=== PATIENT | male | born 1945 | race Caucasian/White ===

== ENCOUNTER 2020-04-22 17:07 | Inpatient (IN) ==
[2020-04-22] MEDS ORDERED: *HR* Enoxaparin 100 MG/ML SYRINGE SQ STA (17:15)
[2020-04-22] MEDS ORDERED: Furosemide 40 MG/4 ML VIAL IVP ONE (17:49)
[2020-04-22 18:01] LABS: INR 1.5; Prothrombin Time 16.8 Seconds (9.4-12.1)
[2020-04-22 18:04] LABS: Activated Partial Thrombo Time 33.4 Seconds (26.0-36.0)
[2020-04-22 18:39] LABS: Adenovirus Not Detected (Not Detect); Bordetella Pertussis Not Detected (Not Detect); Chlamydophila pneumoniae Not Detected (Not Detect); Coronavirus 229E Not Detected (Not Detect); Coronavirus HKU1 Not Detected (Not Detect); Coronavirus NL63 Not Detected (Not Detect); Coronavirus OC43 Not Detected (Not Detect); Human Metapneumovirus Not Detected (Not Detect); Human Rhinovirus/Enterovirus Not Detected (Not Detect); Influenza A Subtype 2009 H1 Not Detected (Not Detect); Influenza B Not Detected (Not Detect); Mycoplasma pneumoniae Not Detected (Not Detect); Parainfluenza Virus 1 Not Detected (Not Detect); Parainfluenza Virus 2 Not Detected (Not Detect); Parainfluenza Virus 3 Not Detected (Not Detect); Parainfluenza Virus 4 Not Detected (Not Detect); Respiratory Syncytial Virus Not Detected (Not Detect)
[2020-04-22] MEDS ORDERED: Azithromycin 500 MG in 0.9 % Sodium Chloride 250 ML IVPB ONE (18:57)
[2020-04-22] MEDS ORDERED: cefTRIAXone 1,000 MG in Water for inj. (sterile) 10 ML IVP ONE (18:58)
[2020-04-22] MEDS ORDERED: Naloxone 0.4 MG/ML INJ IVP PRN (20:03)
[2020-04-22] MEDS ORDERED: *HR* Dextrose 50 % in Water (Vial) 50 ML VIAL IVP PRN (23:34)
[2020-04-22] MEDS ORDERED: D5% in Water 1,000 ML IVC PRN (23:34)
[2020-04-22] MEDS ORDERED: Dextrose Gel 15 GM/37.5 ML TUBE PO PRN ×2 (23:34)
[2020-04-23] MEDS ORDERED: Perflutren Lipid Microsphere 1.3 ML in 0.9 % Sodium Chloride 8.7 ML IVP PRN (03:04)
[2020-04-23 05:41] LABS: Hematocrit 40.6 % (37.5-50.1); Mean Platelet Volume 10.4 fL (9.4-12.4)
[2020-04-23 05:43] LABS: Hemoglobin 13.2 g/dL (12.9-16.9); Immature Platelets 3.6 % (1.1-6.1); Mean Corpuscular HGB Conc 32.5 g/dL (31.6-35.5); Mean Corpuscular Hemoglobin 29.8 pg (28.0-33.3); Mean Corpuscular Volume 91.6 fL (83.0-100.0); Red Blood Count 4.43 M/mcL (4.19-5.50); Red Cell Distribution Width 14.6 % (11.5-14.5); White Blood Count 6.2 K/mcL (4.3-11.1)
[2020-04-23 05:47] LABS: BUN/Creatinine Ratio 33 (6-26); Blood Urea Nitrogen 25 mg/dL (8-23); Calcium 8.5 mg/dL (8.6-10.3); Carbon Dioxide 23 mEq/L (23-29); Chloride 105 mEq/L (98-107); Glucose 74 mg/dL (70-105); Magnesium 1.9 mg/dL (1.6-2.6); Osmolality,Calculated 293 (280-300); Phosphorous 3.7 mg/dL (2.7-4.5); Potassium 3.2 mEq/L (3.5-5.1); Sodium 140 mEq/L (136-145); eGFR For African Americans > 60 (> 60); eGFR For Non-African Americans > 60 (> 60)
[2020-04-23] MEDS ORDERED: *HR* Enoxaparin 120 MG/0.8 ML SYRINGE SQ SCH (06:00)
[2020-04-23] MEDS: Insulin LISPRO 300 UNITS/3 ML VIAL SQ SCH ×4 (08:17→20:12)
[2020-04-23] MEDS ORDERED: Furosemide 40 MG/4 ML VIAL IVP ONE (10:59)
[2020-04-23] MEDS ORDERED: amLODIPine 5 MG TABLET PO SCH (11:00)
[2020-04-23] MEDS: Cyanocobalamin (B-12) 1,000 MCG TABLET PO SCH ×2 (11:34→20:11)
[2020-04-23] MEDS: GlipiZIDE 5 MG TABLET PO SCH (15:19)
[2020-04-23] MEDS: Triamcinolone Acet 0.1% CRM 15 GM TUBE TP SCH ×2 (15:27→20:12)
[2020-04-23] MEDS: Ketoconazole 2% CRM 15 GM TUBE TP SCH ×2 (15:27→20:12)
[2020-04-23] MEDS: Apixaban 5 MG TABLET PO SCH (20:11)
[2020-04-24 03:25] LABS: Basophils % 0.4 %; Eosinophils # 0.1 K/mcL (0.0-0.6); Eosinophils % 0.7 %; Hematocrit 43.6 % (37.5-50.1); Immature Granulocytes % 0.3 % (0-4); Lymphocytes # 1.6 K/mcL (0.6-4.6); Lymphocytes % 24.3 %; Mean Corpuscular HGB Conc 32.1 g/dL (31.6-35.5); Mean Corpuscular Hemoglobin 30.4 pg (28.0-33.3); Mean Corpuscular Volume 94.8 fL (83.0-100.0); Mean Platelet Volume 10.4 fL (9.4-12.4); Monocytes # 0.6 K/mcL (0.0-1.3); Monocytes % 9.3 %; Neutrophils # 4.4 K/mcL (1.6-8.9); Platelet Count 153 K/mcL (140-400); Red Cell Distribution Width 14.6 % (11.5-14.5); White Blood Count 6.7 K/mcL (4.3-11.1)
[2020-04-24 03:45] LABS: BUN/Creatinine Ratio 36 (6-26); Blood Urea Nitrogen 31 mg/dL (8-23); Calcium 9.1 mg/dL (8.6-10.3); Carbon Dioxide 25 mEq/L (23-29); Chloride 104 mEq/L (98-107); Glucose 124 mg/dL (70-105); Osmolality,Calculated 296 (280-300); Sodium 139 mEq/L (136-145); eGFR For African Americans > 60 (> 60); eGFR For Non-African Americans > 60 (> 60)
[2020-04-24] MEDS: Cyanocobalamin (B-12) 1,000 MCG TABLET PO SCH ×2 (07:54→21:17)
[2020-04-24] MEDS: Apixaban 5 MG TABLET PO SCH (07:54)
[2020-04-24] MEDS: GlipiZIDE 5 MG TABLET PO SCH (07:55)
[2020-04-24] MEDS: Ketoconazole 2% CRM 15 GM TUBE TP SCH ×2 (07:57→21:19)
[2020-04-24] MEDS: Insulin LISPRO 300 UNITS/3 ML VIAL SQ SCH ×4 (07:57→21:12)
[2020-04-24] MEDS: Triamcinolone Acet 0.1% CRM 15 GM TUBE TP SCH ×2 (07:57→21:18)
[2020-04-24] MEDS ORDERED: Furosemide 20 MG/2 ML VIAL IVP ONE (13:13)
[2020-04-24] MEDS: *HR* Enoxaparin 120 MG/0.8 ML SYRINGE SQ SCH (21:17)
[2020-04-25] MEDS: *HR* Enoxaparin 120 MG/0.8 ML SYRINGE SQ SCH ×2 (05:29→17:58)
[2020-04-25] MEDS: Insulin LISPRO 300 UNITS/3 ML VIAL SQ SCH ×4 (07:40→20:54)
[2020-04-25] MEDS: Cyanocobalamin (B-12) 1,000 MCG TABLET PO SCH ×2 (08:59→20:49)
[2020-04-25] MEDS: GlipiZIDE 5 MG TABLET PO SCH (08:59)
[2020-04-25] MEDS: Triamcinolone Acet 0.1% CRM 15 GM TUBE TP SCH ×2 (09:04→20:46)
[2020-04-25] MEDS: Ketoconazole 2% CRM 15 GM TUBE TP SCH ×2 (09:04→20:46)
[2020-04-25] MEDS: Furosemide 40 MG/4 ML VIAL IVP SCH (20:49)
[2020-04-26] MEDS: *HR* Enoxaparin 120 MG/0.8 ML SYRINGE SQ SCH ×2 (05:10→17:31)
[2020-04-26 05:33] LABS: INR 1.6; Prothrombin Time 18.4 Seconds (9.4-12.1)
[2020-04-26 05:36] LABS: Basophils # 0.1 K/mcL (0.0-0.2); Basophils % 0.9 %; Eosinophils # 0.1 K/mcL (0.0-0.6); Eosinophils % 1.1 %; Hematocrit 45.2 % (37.5-50.1); Hemoglobin 14.6 g/dL (12.9-16.9); Immature Granulocytes % 0.2 % (0-4); Lymphocytes # 2.1 K/mcL (0.6-4.6); Lymphocytes % 31.2 %; Mean Corpuscular HGB Conc 32.3 g/dL (31.6-35.5); Mean Corpuscular Hemoglobin 29.5 pg (28.0-33.3); Mean Corpuscular Volume 91.3 fL (83.0-100.0); Mean Platelet Volume 10.7 fL (9.4-12.4); Monocytes # 0.7 K/mcL (0.0-1.3); Neutrophils # 3.7 K/mcL (1.6-8.9); Platelet Count 176 K/mcL (140-400); Red Blood Count 4.95 M/mcL (4.19-5.50); Red Cell Distribution Width 14.6 % (11.5-14.5); Segmented Neutrophils % 56.6 %; White Blood Count 6.6 K/mcL (4.3-11.1)
[2020-04-26 05:51] LABS: BUN/Creatinine Ratio 43 (6-26); Blood Urea Nitrogen 32 mg/dL (8-23); Carbon Dioxide 24 mEq/L (23-29); Chloride 102 mEq/L (98-107); Glucose 84 mg/dL (70-105); Osmolality,Calculated 286 (280-300); Potassium 3.7 mEq/L (3.5-5.1); Sodium 135 mEq/L (136-145); eGFR For African Americans > 60 (> 60); eGFR For Non-African Americans > 60 (> 60)
[2020-04-26] MEDS: Insulin LISPRO 300 UNITS/3 ML VIAL SQ SCH ×4 (08:17→21:22)
[2020-04-26] MEDS: Aspirin 81 MG TAB.CHEW PO SCH (09:01)
[2020-04-26] MEDS: Furosemide 40 MG/4 ML VIAL IVP SCH ×2 (09:01→20:03)
[2020-04-26] MEDS: Cyanocobalamin (B-12) 1,000 MCG TABLET PO SCH ×2 (09:02→20:03)
[2020-04-26] MEDS: Metoprolol XL (24 HR) Succ 50 MG TAB.ER.24H PO SCH (09:02)
[2020-04-26] MEDS: GlipiZIDE 5 MG TABLET PO SCH (09:04)
[2020-04-26] MEDS: Ketoconazole 2% CRM 15 GM TUBE TP SCH ×2 (09:10→20:02)
[2020-04-26] MEDS: Triamcinolone Acet 0.1% CRM 15 GM TUBE TP SCH ×2 (09:10→20:02)
[2020-04-27] MEDS: *HR* Enoxaparin 120 MG/0.8 ML SYRINGE SQ SCH ×2 (05:06→17:40)
[2020-04-27] MEDS: Insulin LISPRO 300 UNITS/3 ML VIAL SQ SCH ×4 (08:17→20:18)
[2020-04-27] MEDS: Aspirin 81 MG TAB.CHEW PO SCH (08:21)
[2020-04-27] MEDS: Furosemide 40 MG/4 ML VIAL IVP SCH ×2 (08:21→20:14)
[2020-04-27] MEDS: Metoprolol XL (24 HR) Succ 50 MG TAB.ER.24H PO SCH (08:21)
[2020-04-27] MEDS: Cyanocobalamin (B-12) 1,000 MCG TABLET PO SCH ×2 (08:22→20:14)
[2020-04-27] MEDS: Triamcinolone Acet 0.1% CRM 15 GM TUBE TP SCH ×2 (08:23→21:48)
[2020-04-27] MEDS: Ketoconazole 2% CRM 15 GM TUBE TP SCH ×2 (08:23→20:15)
[2020-04-27] MEDS: GlipiZIDE 5 MG TABLET PO SCH (08:24)
[2020-04-28] MEDS: *HR* Enoxaparin 120 MG/0.8 ML SYRINGE SQ SCH ×2 (04:16→16:26)
[2020-04-28 07:06] LABS: Basophils % 0.7 %; Eosinophils # 0.1 K/mcL (0.0-0.6); Eosinophils % 1.4 %; Hematocrit 43.2 % (37.5-50.1); Hemoglobin 13.9 g/dL (12.9-16.9); Immature Granulocytes % 0.2 % (0-4); Lymphocytes # 1.4 K/mcL (0.6-4.6); Lymphocytes % 25.5 %; Mean Corpuscular HGB Conc 32.2 g/dL (31.6-35.5); Mean Corpuscular Hemoglobin 29.6 pg (28.0-33.3); Mean Corpuscular Volume 91.9 fL (83.0-100.0); Mean Platelet Volume 10.1 fL (9.4-12.4); Monocytes # 0.7 K/mcL (0.0-1.3); Monocytes % 11.9 %; Neutrophils # 3.3 K/mcL (1.6-8.9); Platelet Count 153 K/mcL (140-400); Red Cell Distribution Width 14.6 % (11.5-14.5); Segmented Neutrophils % 60.3 %; White Blood Count 5.5 K/mcL (4.3-11.1)
[2020-04-28] MEDS: Insulin LISPRO 300 UNITS/3 ML VIAL SQ SCH ×4 (08:18→22:22)
[2020-04-28 08:23] LABS: BUN/Creatinine Ratio 32 (6-26); Blood Urea Nitrogen 24 mg/dL (8-23); Calcium 8.7 mg/dL (8.6-10.3); Carbon Dioxide 27 mEq/L (23-29); Chloride 103 mEq/L (98-107); Glucose 84 mg/dL (70-105); Magnesium 2.1 mg/dL (1.6-2.6); Osmolality,Calculated 289 (280-300); Potassium 3.3 mEq/L (3.5-5.1); Sodium 138 mEq/L (136-145); eGFR For African Americans > 60 (> 60); eGFR For Non-African Americans > 60 (> 60)
[2020-04-28] MEDS: Metoprolol XL (24 HR) Succ 50 MG TAB.ER.24H PO SCH (08:28)
[2020-04-28] MEDS: Ketoconazole 2% CRM 15 GM TUBE TP SCH ×2 (08:28→20:42)
[2020-04-28] MEDS: GlipiZIDE 5 MG TABLET PO SCH (08:28)
[2020-04-28] MEDS: Aspirin 81 MG TAB.CHEW PO SCH (08:28)
[2020-04-28] MEDS: Cyanocobalamin (B-12) 1,000 MCG TABLET PO SCH ×2 (08:28→20:40)
[2020-04-28] MEDS: Triamcinolone Acet 0.1% CRM 15 GM TUBE TP SCH ×2 (08:29→20:42)
[2020-04-28] MEDS ORDERED: ISOVUE-370 200 ML INFUS..BTL ONE (10:33)
[2020-04-28] MEDS ORDERED: *HR* Heparin 10,000 UNIT/10 ML VIAL ONE (10:33)
[2020-04-28] MEDS ORDERED: Heparin 1,000 UNITS/500 mL 1,000 ML ONE (10:33)
[2020-04-28] MEDS ORDERED: 0.9 % Sodium Chloride 2,000 ML ONE (10:33)
[2020-04-28] MEDS ORDERED: Nitroglycerin 1,000 MCG/10 ML VIAL IV ONE (10:34)
[2020-04-28] MEDS ORDERED: *HR* Midazolam HCl 2 MG/2 ML VIAL ONE (10:48)
[2020-04-28] MEDS ORDERED: Acetaminophen 325 MG TABLET PO PRN (11:48)
[2020-04-28] MEDS ORDERED: Furosemide 40 MG/4 ML VIAL IVP SCH (12:00)
[2020-04-28] MEDS ORDERED: polyethylene glycoL 3350 17 GM POWD.PACK PO PRN (13:11)
[2020-04-28] MEDS: Furosemide 40 MG TABLET PO SCH (14:10)
[2020-04-29] MEDS: *HR* Enoxaparin 120 MG/0.8 ML SYRINGE SQ SCH (05:54)
[2020-04-29] MEDS: Furosemide 40 MG TABLET PO SCH (07:54)
[2020-04-29] MEDS: Metoprolol XL (24 HR) Succ 50 MG TAB.ER.24H PO SCH (07:54)
[2020-04-29] MEDS: Cyanocobalamin (B-12) 1,000 MCG TABLET PO SCH (07:54)
[2020-04-29] MEDS: Aspirin 81 MG TAB.CHEW PO SCH (08:06)
[2020-04-29 08:13] LABS: INR 1.2; Prothrombin Time 14.1 Seconds (9.4-12.1)
[2020-04-29 08:46] LABS: Alanine Aminotransferase 19 Units/L (7-52); Albumin 3.6 g/dL (3.5-5.7); Alkaline Phosphatase 79 Units/L (34-104); Aspartate Amino Transferase 25 Units/L (13-39); BUN/Creatinine Ratio 30 (6-26); Bilirubin,Total 1.1 mg/dL (0.3-1.0); Blood Urea Nitrogen 22 mg/dL (8-23); Calcium 9.3 mg/dL (8.6-10.3); Carbon Dioxide 26 mEq/L (23-29); Chloride 103 mEq/L (98-107); Globulin 3.5 g/dL (2.4-3.5); Glucose 91 mg/dL (70-105); Osmolality,Calculated 289 (280-300); Potassium 4.2 mEq/L (3.5-5.1); Sodium 138 mEq/L (136-145); Total Protein 7.1 g/dL (6.4-8.9); eGFR For African Americans > 60 (> 60); eGFR For Non-African Americans > 60 (> 60)
[2020-04-29] MEDS ORDERED: lisinopriL 5 MG TABLET PO SCH (09:00)
[2020-04-29] MEDS: Insulin LISPRO 300 UNITS/3 ML VIAL SQ SCH ×2 (10:36→11:47)
[2020-04-29 11:15] VITALS: BP 103/70
[2020-04-29] MEDS: Ketoconazole 2% CRM 15 GM TUBE TP SCH (11:35)
[2020-04-29] MEDS: Triamcinolone Acet 0.1% CRM 15 GM TUBE TP SCH (11:36)
== END 2020-04-29 14:10 | disposition left against medical advice (07) | DRG 286 ==
LOC: 3ANU 17:07 → EMEROOARM 17:07 → SUATTDRO 21:09 → 3ANU 21:26 → SUATTDRO 04-24 14:48
PROVIDERS: ADMIT Student in an Organized Health Care Education/Training Program; ATTEND Internal Medicine